=== PATIENT | female | born 1980 ===

== ENCOUNTER 2019-03-07 09:18 | Emergency (ER) | payer OTHER, MEDICAID ==
[2019-03-07] MEDS ORDERED: Acetaminophen/Codeine 300-30 MG Tab ONE (09:30)
[2019-03-07 09:50] VITALS: BP 136/92; PULSE 56
--- NOTE | 2019-03-07 10:18 | EDM.PDOC ---
ED HPI GENERAL MEDICAL PROBLEM - General Chief Complaint: General Stated Complaint: LEFT THUMB INJURY Time Seen by Provider: 03/07/19 09:30 Source of Information: Reports: Patient - History of Present Illness INITIAL COMMENTS - FREE TEXT/NARRATIVE: This patient presets to the ED for evaluation of a thumb injury. She was using a dharmesh to move an ice house when it hit her in the hand. She is complaining of pain to the left thumb. She denies other injuries or concerns. Onset: Today Location: Reports: Upper Extremity, Left Quality: Reports: Ache, Throbbing Severity: Moderate Associated Symptoms: Reports: No Other Symptoms Left Finger-Thumb Pain Score (Numeric/FACES): 7 - Related Data Allergies Allergy/AdvReac Type Severity Reaction Status Date / Time No Known Allergies Allergy Verified 03/07/19 09:21 Home Meds: Home Meds NK [No Known Home Meds] 05/16/15 [History] Past Medical History - Past Health History Medical/Surgical History: Denies Medical/Surgical History [employer] History: Reports: Neurological History: Reports: Other (See Below) Other Neuro History: migranes Social & Family History - Family History Family Medical History: Noncontributory - Tobacco Use Smoking Status *Q: Never Smoker Second Hand Smoke Exposure: No - Caffeine Use Caffeine Use: Reports: None - Recreational Drug Use Recreational Drug Use: No ED ROS GENERAL - Review of Systems Review Of Systems: See Below Constitutional: Reports: No Symptoms HEENT: Reports: No Symptoms Respiratory: Reports: No Symptoms Cardiovascular: Reports: No Symptoms GI/Abdominal: Reports: No Symptoms Musculoskeletal: Reports: Other (left thumb pain) Neurological: Reports: No Symptoms ED EXAM, GENERAL - Physical Exam Exam: See Below Exam Limited By: No Limitations General Appearance: Alert, WD/WN, No Apparent Distress Eye Exam: Bilateral Eye: PERRL Ears: Normal External Exam Nose: Normal Inspection Throat/Mouth: Normal Inspection Head: Atraumatic, Normocephalic Neck: Normal Inspection, Full Range of Motion Respiratory/Chest: No Respiratory Distress Extremities: Normal Inspection, Other (full ROM in all extremities except left first digit. Left first digit swollen, bruised, quite tender to touch. No obvious deformity. Distal CMS intact.) Neurological: Alert, Oriented Psychiatric: Normal Affect Skin Exam: Warm, Dry Course - Vital Signs Last Recorded V/S: Last Vital Signs Temp 36.9 C 03/07/19 09:25 Pulse 56 L 03/07/19 09:35 Resp 18 03/07/19 09:25 BP 136/92 H 03/07/19 09:35 Pulse Ox 97 03/07/19 09:35 - Orders/Labs/Meds Orders: Active Orders 24 hr Category Date Time Status Hand 2V Lt [CR] Stat Exams 03/07/19 09:34 Taken - Re-Assessments/Exams Free Text/Narrative Re-Assessment/Exam: 03/07/19 10:14 The patient presents for evaluation of left first digit pain. CMS is intact distally in the extremity. X-rays reveal a non-displaced oblique fracture to the [id number] proximal phalange that does not need reduction at this time. Splint was placed as noted above, and splint and fracture precautions for home. Close follow up with [facility] is indicated in the next week. The patient's exam including remaining upper extremity exam is otherwise normal at this time and no further trauma workup is needed at this time. The patient left with complete understanding and agreement with this plan and no other complaints. Departure - Departure Time of Disposition: 10:10 Disposition: Admitted As Inpatient 68 Condition: Good Clinical Impression: Fracture of thumb - Discharge Information Instructions: RICE Therapy for Routine Care of Injuries, [id number], Thumb Fracture Referrals: PCP,None [Primary Care Provider] - Forms: ED Department Discharge Additional Instructions: Discharge home. Wear the splint to the left hand till seen in the clinic. Tylenol with codeine 2 tablets by mouth for pain as directed. Follow up with ortho in [place] next week. Call or return to the clinic or ER as needed. Sepsis Event Note - Evaluation Sepsis Screening Result: No Definite Risk - Focused Exam Vital Signs: Vital Signs Temp Pulse Resp BP Pulse Ox 03/07/19 09:35 56 L 136/92 H 97 03/07/19 09:25 36.9 C 65 18 142/91 H 99 03/07/19 09:21 36.9 C 65 18 142/91 H 99 Date Exam was Performed: 03/07/19 Time Exam was Performed: 10:09 - My Orders Last 24 Hours: My Active Orders 03/07/19 09:34 Hand 2V Lt [CR] Stat - Assessment/Plan Last 24 Hours: My Active Orders 01/01/20 09:34 Hand 2V Lt [CR] Stat
--- NOTE | 2019-03-08 08:04 | CR ---
Date of Service: 03/07/19 Clinical Data: thumb injury LEFT HAND: No acute fracture or dislocation. No lytic or blastic bone lesions. [id number] [facility]
== END 2019-03-07 10:05 | disposition critical access hospital (66) ==
LOC: LB.ED 09:18
DX: S62.525A Nondisplaced fracture of distal phalanx of left thumb, initial encounter for closed fracture (principal); S62.515A Nondisplaced fracture of proximal phalanx of left thumb, initial encounter for closed fracture; W22.8XXA Striking against or struck by other objects, initial encounter
CPT/HCPCS: 29125; 73120-LT; 99283-25; A9270-GY